=== PATIENT | male | born 1955 | race Caucasian/White ===

== ENCOUNTER 2017-11-01 07:30 | Observation (INO) | payer BC ==
--- NOTE | ~2017-11-01 | DS ---
PATIENT:BUNNY WALTON :51 MEDICAL RECORD: [id number] DISCHARGE SUMMARY ADMISSION DATE: 11/01/17 DISCHARGE DATE: 11/01/17 DATE OF ADMISSION: 11/01/2017. DATE OF DISCHARGE: 11/01/2017. ADMISSION DIAGNOSES: 1. Colovesical fistula. 2. Acute diverticulitis. 3. Urinary tract infection. DISCHARGE DIAGNOSES: 1. Colovesical fistula. 2. Acute diverticulitis. 3. Urinary tract infection. PROCEDURE: None. CONSULTATIONS: None. REPORT OF HOSPITALIZATION: The patient was admitted to the hospital in transfer from [facility] with a colovesical fistula. The patient was felt to be stable once he came to our facility and had no signs of any acute problems that required hospitalization. The patient was on IV antibiotics and his main concern was that he had started passing air when he urinated. He was otherwise stable and had a normal white count. His urine showed evidence of UTI and he had a CT scan, which showed evidence of a colovesical fistula with acute mild diverticulitis and at that point, the patient was felt to be stable for discharge home. DISCHARGE INSTRUCTIONS: Return to clinic or call with any questions or concerns, fevers, chills, nausea, vomiting, or worsening abdominal pain. ACTIVITIES: As tolerated. FOLLOWUP: In clinic with me in one week. DISCHARGE MEDICATIONS: Levaquin 750 mg daily and Flagyl 500 mg q.8 hours. TRANSINT:[id number] Voice Confirmation ID: [id number] DOCUMENT ID: [id number] VENKAT NIETO MD at 1413 CC: [id number] DICTATION DATE: 11/15/17 1309 DERMATOLOGY PHYSICIAN ASSISTANT: 11/15/17 1349 DIS IN 11/01/17 [place] [address]
[2017-11-01 09:07] VITALS: BP 118/86
[2017-11-01] MEDS ORDERED: LEVAQUIN750 MG PO (09:19)
[2017-11-01] MEDS ORDERED: FLAGYL500 MG PO (09:20)
== END 2017-11-01 12:30 | disposition home or self-care (01) ==
LOC: D.MS 07:30 → D.M2 07:30 → D.SDCHOLD 07:30 → OBSVTIME 07:30 → D.SDCHOLD 12:30 → D.MS 12:30
DX: N39.0 Urinary tract infection, site not specified (principal); K57.92 Diverticulitis of intestine, part unspecified, without perforation or abscess without bleeding; N32.1 Vesicointestinal fistula

== ENCOUNTER 2017-11-12 07:46 | Inpatient (IN) | payer BC ==
[~2017-11-12] VITALS: Ht 182.9 cm; Wt 108.9 kg
--- NOTE | ~2017-11-12 | OP ---
PATIENT NAME: BUNNY WALTON MEDICAL RECORD: [id number] :51 LOCATION:[id number] ADMISSION DATE:11/12/17 SURGEON: SEBASTIÁN NIETO MD DATE OF OPERATION: 11/12/2017 PREOPERATIVE DIAGNOSES: 1. Colovesical fistula. 2. Diverticular disease. 3. Hypertension. 4. Hypercholesterolemia. POSTOPERATIVE DIAGNOSES: 1. Colovesical fistula. 2. Diverticular disease. 3. Hypertension. 4. Hypercholesterolemia. PROCEDURE: Hand-assisted laparoscopic sigmoid colectomy. SURGEON: Sebastián Nieto MD REPORT OF PROCEDURE: The patient's abdomen was prepped and draped in sterile fashion. A skin incision was made in the midline in the suprapubic region. Electrocautery was used to dissect through the subcutaneous tissues and fascia until we entered the abdominal cavity. Once inside, a Gelport was inserted with a 5-mm trocar within it. Under direct visualization, a 5 mm trocar was placed in the right lateral abdomen and a 12-mm trocar was placed just anterior to the anterior superior iliac crest on the right side. The patient had dense inflammatory adhesions in the pelvis and to the sigmoid colon. These extended up to the anterior and left lateral pelvis. I was eventually able to finger dissect these adhesions down off the abdominal wall and get underneath this mass of firm diverticular sigmoid colon. I was able to find the proximal aspect of the patient's rectum and this appeared to be normal with no signs of any inflammation. A 55 blue load Endo-MESSI stapler was used to transect the colon at the rectosigmoid junction. We then took down the mesentery with multiple fires of a white load Endo-MESSI stapler and occasional clamp and tie technique with 3-0 silk ties. We were eventually able to get the mesentery taken down just underneath the patient's sigmoid colon until we got to what appeared to be normal proximal sigmoid/distal left colon. The colon was transected at the distal left colon and sent off for permanent specimen. At this point, we inspected the area and there were a couple areas of bleeding from the staple lines and these were oversewn with 3-0 silks, which discontinued any bleeding. We irrigated out the pelvis in the left lower quadrant and assured there was no sign of any other active bleeding. I did not see any evidence of any injury to any of the other structures. At this point, we started taking down the white line of Toldt on the left lateral abdomen and performed mobilization of the splenic flexure. At this point, we were able to easily get the bowel down to the proximal rectum. We eviscerated the end of the bowel out of the wound protector and transected the bowel at this point. A 2-0 Prolene was used to make a pursestring and a 29 EEA anvil was inserted into the distal rectum. The pursestring was tied down tightly. We then placed multiple dilators followed by the EEA stapler through the patient's rectum and a 29 EEA stapler was fired between the rectum and the distal colon forming a good anastomosis. There were 2 rings of intact tissue present within the stapler and we inspected the anastomotic line under water by instilling air through the rectum. There was no OPERATIVE REPORT [id number] BUNNY WALTON sign of any leak present. At this point, we placed a few Lemberted silk sutures on the anterior and lateral aspects of the anastomosis. We then irrigated out the abdomen one last time and assured there was no sign of any bleeding. I attempted to bring the patient's omentum down. The patient's omentum was very short and barely covered over the transverse colon. I tried to release the omentum off the colon and even with doing this, it had barely got long term down the patient's abdominal cavity. I decided this was not going to be a good route for coverage of the anastomosis. The patient did have a very large appendix epiploica on the colon. I placed these over top of the anastomosis. I inspected the area of the bladder where the most inflammation was present. I did not see an actual opening present. The feeling was that this was a very small colovesical fistula, probably more microscopic in nature. I elected just to leave the patient's Zarate catheter in place to treat this. At this point, the ports and insufflation were then removed. The 12-mm trocar site fascia was closed with a 0 Vicryl using a Joe-Marshall suture passer device. The midline fascia was closed with running #1 loop PDS times 2. We then irrigated out the wound thoroughly and reapproximated the subcutaneous tissues with interrupted 3-0 Vicryl. The skin incisions were all closed with jing and dressed appropriately. COMPLICATIONS: None. CONDITION: Stable. ANESTHESIA: General endotracheal. BLOOD LOSS: 250 mL. TRANSINT:[id number] Voice Confirmation ID: [id number] DOCUMENT ID: [id number] SEBASTIÁN NIETO MD at 1319 CC: [id number] DICTATION DATE: 11/12/17 1501 SPORTS EQUIPMENT RACKER: 11/12/17 1522 DIS IN 11/15/17 [place] [id number] [place] [id number]
[~2017-11-12 07:46] MED LIST: FLAGYL500 MG PO; LEVAQUIN750 MG PO
[2017-11-12] MEDS ORDERED: TENORMIN50 MG PO (08:18)
[2017-11-12] MEDS ORDERED: PROSCAR5 MG PO (08:18)
[2017-11-12] MEDS ORDERED: NEURONTIN 300300 MG PO (08:19)
[2017-11-12] MEDS ORDERED: NAPROSYN500 MG PO (08:19)
[2017-11-12] MEDS ORDERED: XANAX1 MG PO (08:19)
[2017-11-12] MEDS ORDERED: ULTRAM50 MG PO (08:20)
[2017-11-12] MEDS ORDERED: LIPITOR10 MG PO (08:20)
[2017-11-12] MEDS ORDERED: CYCLOBENZAPRINE10 MG PO (08:21)
[2017-11-12 08:35] VITALS: BP 141/88; BMI 32.6
[2017-11-12 08:56] LABS: BASOPHILS 0.6 % (0-2); EOSINOPHILS 3.9 % (0-7); HEMATOCRIT 49.1 % (42.0-54.0); HEMOGLOBIN 17.1 g/dL (13.5-17.5); IMMATURE GRANULOCYTES 0.8 % (0-5); LYMPHOCYTES 23.4 % (15-50); MCH 30.5 pg (26.0-34.0); MCHC 34.8 g/dL (31.0-37.0); MCV 87.5 fL (80.0-100.0); MEAN PLATELET VOLUME 10.4 fL (7.4-10.4); NEUTROPHILS 61.3 % (40-80); PLATELET COUNT 155 10x3/uL (130-400); RBC 5.61 10x6/uL (4.20-6.10); RDW 13.2 % (11.5-14.5); WBC 8.5 10x3/uL (4.8-10.8)
[2017-11-12 08:57] LABS: CALC OSMOLALITY 277 mosm/kg (275-300); CALCIUM 8.6 mg/dL (8.5-10.1); CARBON DIOXIDE 29.6 mmol/L (21.0-32.0); CHLORIDE - SERUM 103 mmol/L (98-107); GLUCOSE 98 mg/dL (74-106); POTASSIUM - SERUM 3.5 mmol/L (3.5-5.1); SODIUM 140 mmol/L (136-145); UREA NITROGEN 9 mg/dL (7-18); eGFR NON AFRICAN AMERICAN 80 mL/min (90-120)
[2017-11-12 16:43] VITALS: BP 147/78
[2017-11-12 20:00] VITALS: BP 151/85
[2017-11-13] VITALS: BP 117/82
[2017-11-13 04:00] VITALS: BP 150/76
[2017-11-13 05:05] LABS: BASOPHILS 0.1 % (0-2); EOSINOPHILS 0 % (0-7); HEMATOCRIT 47.8 % (42.0-54.0); HEMOGLOBIN 16.3 g/dL (13.5-17.5); IMMATURE GRANULOCYTES 0.4 % (0-5); LYMPHOCYTES 6.9 % (15-50); MCH 30.1 pg (26.0-34.0); MCHC 34.1 g/dL (31.0-37.0); MCV 88.2 fL (80.0-100.0); MEAN PLATELET VOLUME 10.7 fL (7.4-10.4); MONOCYTES 6.1 % (2-11); NEUTROPHILS 86.5 % (40-80); PLATELET COUNT 155 10x3/uL (130-400); RBC 5.42 10x6/uL (4.20-6.10); RDW 13.1 % (11.5-14.5)
[2017-11-13 05:11] LABS: WBC 15.9 10x3/uL (4.8-10.8)
[2017-11-13 05:12] VITALS: BMI 32.6
[2017-11-13 05:16] LABS: CALCIUM 8.1 mg/dL (8.5-10.1); CARBON DIOXIDE 26.7 mmol/L (21.0-32.0); CHLORIDE - SERUM 102 mmol/L (98-107); CREATININE - SERUM 0.9 mg/dL (0.6-1.3); GLUCOSE 131 mg/dL (74-106); SODIUM 138 mmol/L (136-145); eGFR NON AFRICAN AMERICAN 90 mL/min (90-120)
[2017-11-13 05:19] LABS: CALC OSMOLALITY 278 mosm/kg (275-300); POTASSIUM - SERUM 4.2 mmol/L (3.5-5.1); UREA NITROGEN 14 mg/dL (7-18)
[2017-11-13 08:03] VITALS: BP 133/73
[2017-11-13 11:56] VITALS: BP 117/62
[2017-11-13 14:18] VITALS: Ht 182.9 cm; Wt 108.9 kg
[2017-11-13 17:02] VITALS: BP 103/56
[2017-11-13 20:00] VITALS: BP 115/57
[2017-11-14] VITALS: BP 105/56
[2017-11-14 04:00] VITALS: BP 138/73
[2017-11-14 04:37] LABS: BASOPHILS 0.1 % (0-2); EOSINOPHILS 0.2 % (0-7); HEMATOCRIT 41.4 % (42.0-54.0); HEMOGLOBIN 13.6 g/dL (13.5-17.5); IMMATURE GRANULOCYTES 0.2 % (0-5); LYMPHOCYTES 13.5 % (15-50); MCH 29.2 pg (26.0-34.0); MCHC 32.9 g/dL (31.0-37.0); MEAN PLATELET VOLUME 10.8 fL (7.4-10.4); MONOCYTES 9.3 % (2-11); NEUTROPHILS 76.7 % (40-80); PLATELET COUNT 144 10x3/uL (130-400); RBC 4.65 10x6/uL (4.20-6.10); RDW 13.3 % (11.5-14.5); WBC 13.3 10x3/uL (4.8-10.8)
[2017-11-14 04:46] LABS: CALC OSMOLALITY 277 mosm/kg (275-300); CALCIUM 7.8 mg/dL (8.5-10.1); CARBON DIOXIDE 25.8 mmol/L (21.0-32.0); CHLORIDE - SERUM 104 mmol/L (98-107); CREATININE - SERUM 0.9 mg/dL (0.6-1.3); GLUCOSE 88 mg/dL (74-106); POTASSIUM - SERUM 3.8 mmol/L (3.5-5.1); SODIUM 138 mmol/L (136-145); eGFR NON AFRICAN AMERICAN 90 mL/min (90-120)
[2017-11-14 05:22] LABS: UREA NITROGEN 21 mg/dL (7-18)
[2017-11-14 09:20] VITALS: BP 135/84
[2017-11-14 13:17] VITALS: BP 129/77
[2017-11-14 17:38] VITALS: BP 130/76
[2017-11-14 20:00] VITALS: BP 114/54
[2017-11-15] VITALS: BP 121/66
[2017-11-15 00:01] LABS: APPEARANCE HAZY (CLEAR); COLOR YELLOW (YELLOW); NITRITE NEGATIVE (NEGATIVE); SPECIFIC GRAVITY 1.015 (1.005-1.020)
[2017-11-15 00:02] LABS: BACTERIA FEW /hpf (NONE SEEN); BILIRUBIN NEGATIVE (NEGATIVE); EPITHELIAL CELLS NSEEN /hpf (0-5); GLUCOSE NEGATIVE (NEGATIVE); KETONE NEGATIVE (NEGATIVE); PROTEIN TRACE mg/dL (NEGATIVE); RED CELLS - URINE 0-5 /hpf (0-5); UROBILINOGEN NORMAL (NORMAL)
[2017-11-15 04:00] VITALS: BP 133/73
[2017-11-15 06:53] LABS: BASOPHILS 0.1 % (0-2); EOSINOPHILS 2.8 % (0-7); HEMATOCRIT 39.2 % (42.0-54.0); HEMOGLOBIN 13.1 g/dL (13.5-17.5); IMMATURE GRANULOCYTES 0.5 % (0-5); LYMPHOCYTES 26.8 % (15-50); MCH 29.5 pg (26.0-34.0); MCHC 33.4 g/dL (31.0-37.0); MCV 88.3 fL (80.0-100.0); MEAN PLATELET VOLUME 10.5 fL (7.4-10.4); NEUTROPHILS 58.8 % (40-80); RBC 4.44 10x6/uL (4.20-6.10); RDW 13.4 % (11.5-14.5)
[2017-11-15 06:55] LABS: PLATELET COUNT 106 10x3/uL (130-400); WBC 7.8 10x3/uL (4.8-10.8)
[2017-11-15 07:11] LABS: CALC OSMOLALITY 278 mosm/kg (275-300); CALCIUM 7.5 mg/dL (8.5-10.1); CARBON DIOXIDE 24.4 mmol/L (21.0-32.0); CHLORIDE - SERUM 105 mmol/L (98-107); CREATININE - SERUM 0.7 mg/dL (0.6-1.3); GLUCOSE 82 mg/dL (74-106); SODIUM 140 mmol/L (136-145); UREA NITROGEN 16 mg/dL (7-18); eGFR NON AFRICAN AMERICAN > 90 mL/min (90-120)
[2017-11-15 07:20] LABS: POTASSIUM - SERUM 3.2 mmol/L (3.5-5.1)
[2017-11-15] MEDS ORDERED: HYDROCODONE-APA1 TAB PO (07:56)
[2017-11-15 08:05] VITALS: BP 127/61
== END 2017-11-15 10:40 | disposition home or self-care (01) | DRG 331 ==
LOC: D.MS 07:46 → D.SDCHOLD 07:46 → D.MS 15:48
PROVIDERS: Surgery
PROC: 0DBN0ZZ Excision of Sigmoid Colon, Open Approach (ICD-10-PCS; principal; 2017-11-12 11:00)
DX: K63.2 Fistula of intestine (principal); I10 Essential (primary) hypertension; E78.00 Pure hypercholesterolemia, unspecified